=== PATIENT | male | born 1955 | race Caucasian/White ===

== ENCOUNTER 2017-05-26 15:44 | Emergency (ER) | payer OTHER ==
[2017-05-26 16:00] VITALS: BP 162/83
--- NOTE | 2017-05-26 16:55 | UC ---
Respiratory Complaint HPI - HPI Summary HPI Summary: 3 weeks of cough, no fevers, nasal drainage, no body aches - History of Current Complaint Chief Complaint: UCRespiratory Stated Complaint: COLD,COUGH Time Seen by Provider: 05/26/17 16:53 Hx Obtained From: Patient Onset/Duration: Gradual Onset, Lasting Weeks - 3 Timing: Constant Severity Initially: Mild Severity Currently: Mild Pain Intensity: 2 Pain Scale Used: 0-10 Numeric Character: Cough: Nonproductive Aggravating Factors: Nothing Alleviating Factors: Nothing Associated Signs And Symptoms: Positive: URI. Negative: Dyspnea, Fever, Chills - Allergies/Home Medications Allergies/Adverse Reactions: Allergies Allergy/AdvReac Type Severity Reaction Status Date / Time No Known Allergies Allergy Verified 05/26/17 16:01 PMH/Surg Hx/FS Hx/Imm Hx Previously Healthy: No - SPinal muscular degeneration Endocrine History: Dyslipidemia Cardiovascular History: Hypertension GI/ History: Gastroesophageal Reflux - Surgical History Surgical History: None - Family History Known Family History: Positive: None - Social History Occupation: Retired Lives: With Family Alcohol Use: Occasionally Substance Use Type: None Smoking Status (MU): Never Smoked Tobacco Review of Systems Constitutional: Negative Skin: Negative Eyes: Negative ENT: Negative Respiratory: Cough Cardiovascular: Negative Gastrointestinal: Negative Genitourinary: Negative Motor: Negative Neurovascular: Negative Musculoskeletal: Negative Neurological: Negative Psychological: Negative Is Patient Immunocompromised?: No All Other Systems Reviewed And Are Negative: Yes Physical Exam Triage Information Reviewed: Yes Appearance: Well-Appearing, No Pain Distress, Well-Nourished Vital Signs: Initial Vital Signs Temp 97.9 F 05/26/17 15:56 Pulse 72 05/26/17 15:56 Resp 18 05/26/17 15:56 BP 162/83 05/26/17 15:56 Pulse Ox 96 05/26/17 15:56 Vital Signs Reviewed: Yes Eye Exam: Normal Eyes: Positive: Conjunctiva Clear ENT Exam: Normal ENT: Positive: Normal ENT inspection, Hearing grossly normal, Pharynx normal, TMs normal. Negative: Nasal congestion, Nasal drainage, Tonsillar swelling, Tonsillar exudate, Trismus, Muffled/hoarse voice Dental Exam: Normal Neck exam: Normal Neck: Positive: Supple, Nontender, No Lymphadenopathy Respiratory Exam: Normal Respiratory: Positive: Chest non-tender, Lungs clear, Normal breath sounds, No respiratory distress, No accessory muscle use Cardiovascular Exam: Normal Cardiovascular: Positive: RRR, No Murmur, Pulses Normal, Brisk Capillary Refill Musculoskeletal Exam: Normal Musculoskeletal: Positive: Strength Intact, ROM Intact, No Edema Neurological Exam: Normal Neurological: Positive: Alert, Muscle Tone Normal Psychological Exam: Normal Skin Exam: Normal UC Diagnostic Evaluation - Laboratory O2 Sat by Pulse Oximetry: 96 Respiratory Course/Dx - Course Course Of Treatment: Increase fluids, albuterol, zithromax, follow with PCP - Differential Dx/Diagnosis Differential Diagnosis/HQI/PQRI: Bronchitis, Lower Resp Infection Provider Diagnoses: High blood pressure in poor control, Bronchitis Discharge - Discharge Plan Condition: Stable Disposition: HOME Prescriptions: Albuterol HFA INHALER* [Ventolin HFA Inhaler*] 2 puff INH Q4H PRN #1 mdi PRN Reason: cough Azithromycin TAB* [Zithromax TAB (Z-GERMAINE) 250 mg #6 tabs] 2 tab PO .TODAY, THEN 1 DAILY #1 germaine Patient Education Materials: Acute Bronchitis (ED), Hypertension (ED), Bronchospasm (ED) Referrals: Wan Russ MD [Primary Care Provider] - 1 Week
== END 2017-05-26 17:14 | disposition home or self-care (01) ==
LOC: UCEAST 15:44
DX: J40 Bronchitis, not specified as acute or chronic (principal); E78.5 Hyperlipidemia, unspecified; I10 Essential (primary) hypertension; K21.9 Gastro-esophageal reflux disease without esophagitis; R03.0 Elevated blood-pressure reading, without diagnosis of hypertension
CPT/HCPCS: 99212; G0463

== ENCOUNTER 2017-08-25 10:32 | Day surgery (SDC) | payer OTHER ==
--- NOTE | 2017-07-27 07:31 | HP ---
PREOPERATIVE HISTORY AND PHYSICAL: DATE OF SURGERY/ADMISSION: 08/04/17 DATE OF OFFICE VISIT/ENCOUNTER: 07/06/17 ATTENDING SURGEON: Sakshi Armando MD * (DICTATED BY OMID SCOTT) PROCEDURE: Right ring finger trigger finger release and wrist carpal tunnel release. PRIMARY CARE PHYSICIAN: Wan Russ MD CHIEF COMPLAINT: Right ring triggering, numbness and tingling, right hand. HISTORY OF PRESENT ILLNESS: This is a 62-year-old male with adult onset spinal muscular atrophy. He is complaining of triggering in his right ring finger ongoing for almost 2 years. He had a cortisone injection a while back that was helpful; however, the symptoms have returned and he would like to pursue surgical intervention for this problem. He is also more recently complaining of numbness and tingling in his right hand. 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 The patient is interested in a carpal tunnel release for his right wrist. The patient generally ambulates with a walker at home and uses a wheelchair away from home. PAST MEDICAL HISTORY: 1. Adult onset spinal muscular atrophy. 2. Hypertension. 3. Hypercholesterolemia. 4. Hypothyroidism. PAST SURGICAL HISTORY: 1. Hernia repair x2. 2. [place] teeth extraction. CURRENT MEDICATIONS: 1. Amlodipine besylate once daily. 2. Aspirin 81 mg daily. 3. Atenolol 50 mg daily. 4. Atorvastatin calcium 10 mg daily. 5. Cyanocobalamin 1000 mcg/mL 1 mL intramuscularly q.2 to 3 weeks. 6. Ergocalciferol 1 cap once a month. 7. Fluocinonide 0.05% apply as needed. 8. Multivitamin daily. 9. Nexium 40 mg daily. 10. Rhinocort Aqua 32 mcg/ACT 1 spray each nostril daily. 11. Singulair 10 mg daily. 12. Synthroid 125 mcg daily. ALLERGIES: No known drug allergies. FAMILY MEDICAL HISTORY: Heart disease, liver cancer, lung and bladder cancer. SOCIAL HISTORY: The patient is retired from [employer]. He denies tobacco use and recreational drug use. He does drink alcohol on regular occasion, approximately 1 glass of wine daily. REVIEW OF SYSTEMS: General: Negative for fevers, chills, or night sweats. No known anesthesia problems. HEENT: Negative for headache, lightheadedness, or syncopal episodes. Integumentary: Negative for abrasions, lesions, or open wounds. Cardiothoracic: Negative for hypertension, chest pain, palpitations, and edema. Pulmonary: Negative for shortness of breath with exertion, chronic cough, COPD. GI: Negative for nausea, vomiting, diarrhea, constipation, and GERD. : Negative for nocturia, urinary frequency, urgency, history of UTIs, and kidney problems. Musculoskeletal: Positive for current complaint and effects from spinal muscular atrophy. Neurologic: Positive for weakness associated with spinal stenosis, spinal muscular atrophy. Negative for history of seizure, stroke, or epilepsy. Endocrine: Negative for diabetes or thyroid issues. Hematologic: Negative for easy bruising, anemia, excessive bleeding, or history of DVT. Infectious Disease: Negative for history of MRSA, hepatitis C, or HIV. PHYSICAL EXAMINATION GENERAL: Well-developed, well-nourished 62-year-old male in no acute distress. The patient presents in a wheelchair. VITAL SIGNS: Height 5 feet 10 inches, weight 198 pounds, pulse rate 66, blood pressure 136/84. HEENT: Normocephalic, atraumatic. Pupils are equal, round, and reactive to light and accommodation. Extraocular movements are intact. Throat is clear. NECK: Supple. No palpable lymph nodes. PULMONARY: Lungs are clear to auscultation bilaterally. No wheezes, rales, or rhonchi. CARDIOTHORACIC: Regular rate and rhythm. S1, S2. No murmurs, rubs, or gallops. No edema. ABDOMEN: Positive bowel sounds, soft, nontender. NEUROLOGICAL: Alert and oriented x3. Sensation in upper extremities is intact to light touch. MUSCULOSKELETAL: On exam of his right hand, he has tenderness to palpation at the A1 moisés of the ring finger. He has a clicking as he moves the finger into flexion. He has full extension of the fingers and neurovascular function is intact. There is no visible thenar wasting. There is mild weakness with thumb abduction of the right thumb. Mildly positive median nerve compression test. Negative Tinel's. EMG and nerve conduction study suggested possible presence of a more generalized sensory, motor polyneuropathy with superimposed right greater than left median neuropathy at the wrists. IMPRESSION: Right carpal tunnel syndrome and right ring trigger finger. PLAN: The patient is scheduled to undergo a right ring trigger finger release and wrist carpal tunnel release with Dr. Armando on 08/04/17. He will return to the office in 10 to 14 days postop for followup and suture removal. A prescription for Ultracet was e-scribed to the patient's pharmacy for postoperative pain management. OMID SCOTT [id number]/[facility] #: [id number] HONORIO
--- NOTE | 2017-07-31 16:19 | HP ---
PREOPERATIVE HISTORY AND PHYSICAL: DATE OF ADMISSION: 08/25/2017. CHIEF COMPLAINT: Triggering of the right ring finger and numbness and tingling in the right hand. HISTORY OF PRESENT ILLNESS: Noe is a 62-year-old man who has developed triggering of his right ring finger. He has had a couple of injections which were helpful, but now he presents for surgical treatment for permanent relief of his right ring finger triggering. He also has numbness and tingling in his hand and documented carpal tunnel syndrome on nerve conduction study. Additionally, he has spinal muscular atrophy, so there was some question whether the numbness and tingling in his hands was caused by that, but he does have evidence of median nerve compression on nerve conduction study. He presents for right carpal tunnel release and right ring finger trigger release. PAST MEDICAL HISTORY: Also significant for hypothyroidism and also for thoracic aortic ectasia. PAST SURGICAL HISTORY: Hernia repair. MEDICATIONS: 1. Amlodipine besylate once daily. 2. Aspirin 81 mg p.o. daily. 3. Atenolol 50 mg p.o. daily. 4. Atorvastatin calcium 10 mg p.o. daily. 5. Cyanocobalamin 1000 mcg intramuscular every 2 or 3 weeks. 6. Ergocalciferol 1 capsule once a month. 7. Fluocinonide 0.5% apply as needed. 8. Multivitamin 1 p.o. daily. 9. Nexium 40 mg p.o. daily. 10. Rhinocort 30 mcg 1 spray in each nostril daily. 11. Singulair 10 mg p.o. daily. 12. Synthroid 125 mcg p.o. daily. DRUG ALLERGIES: None. SOCIAL HISTORY: He lives with his . Denies tobacco use. Occasionally consumes alcohol. PHYSICAL EXAMINATION GENERAL: He is a healthy-appearing, very pleasant man in minimal distress at rest. The patient ambulates with the aid of a wheelchair or walker. VITAL SIGNS: Height is 70 inches, weight 198 pounds. Pulse 80, blood pressure 148/86. HEENT: Exam is unremarkable. He has good range of motion of his neck with minimal pain. His eye movements are concentric. LUNGS: Clear to auscultation. Good inspiratory effort. No wheezing. CARDIAC: Regular rate and rhythm without murmur. PERIPHERAL VASCULAR: He has palpable pulses and no peripheral edema. EXTREMITIES: He has tenderness at the A1 moisés of the right ring finger and positive Tinel's sign at the median nerve of the wrist. NEUROLOGIC: He has obvious deficits in his lower extremities with inability to walk unaided. IMPRESSION: Right carpal tunnel syndrome and right ring finger trigger finger. PLAN: Right ring finger trigger release and carpal tunnel release. The surgical procedure, risks, and benefits were explained to the patient today and he agrees to proceed. We will see him back in followup for recheck approximately 10 days postop. [id number]/[facility] #: [id number] HONORIO
[~2017-08-25 10:32] MED LIST: Buffered Lidocaine 0.9% SYRIN* 5 ML/SYR SYRINGE INTRADERM ONE; Lidocaine 1% INJ* 10 MG/ML 30 ML SDV ONE
[2017-08-25] MEDS ORDERED: Acetaminophen TAB* 325 MG PO PRN (10:48)
[2017-08-25] MEDS ORDERED: Levalbuterol 0.63MG/3ML NEB* UNIT OF USE INH PRN (10:48)
[2017-08-25] MEDS ORDERED: Naloxone* 0.4 MG/ML 1 ML VIAL IV PRN (10:48)
[2017-08-25] MEDS ORDERED: Ondansetron INJ* 2 MG/ML VIAL IV PRN (10:48)
[2017-08-25] MEDS ORDERED: fentaNYL* 50 MCG/ML 2 ML VIAL (100 MCG VIAL) ONE (11:51)
[2017-08-25] MEDS ORDERED: Midazolam* 1 MG/ML 2 ML VIAL (2 MG) ONE ×2 (11:52)
[2017-08-25] MEDS ORDERED: Famotidine IV* 10 MG/ML 2 ML (20 mg) ONE (12:21)
[2017-08-25] MEDS ORDERED: Propofol* 10 MG/ML 20 ML BTL IV PUSH ONE (12:29)
[2017-08-25] MEDS ORDERED: Lidocaine 2% PF * 5 ML VIAL ONE (12:29)
[2017-08-25] MEDS ORDERED: Ketorolac INJ* 30 MG/ML 1 ML VIAL ONE (12:29)
[2017-08-25 14:21] VITALS: BP 165/87
--- NOTE | 2017-08-26 05:55 | OP ---
DATE OF OPERATION: 08/25/17 [facility] DATE OF : 51 SURGEON: Sakshi Armando MD HOME CARE CONSULTANT: OMID Mendoza ANESTHESIA: Local MAC. PRE-OP DIAGNOSES: Right carpal tunnel syndrome and right ring finger trigger finger. POST-OP DIAGNOSES: Right carpal tunnel syndrome and right ring finger trigger finger. OPERATIVE PROCEDURE: Right ring finger trigger release and right carpal tunnel release. ESTIMATED BLOOD LOSS: Zero. TOURNIQUET TIME: Approximately 10 minutes. INDICATIONS FOR PROCEDURE: Noe is a 62-year-old male with triggering of his right ring finger and numbness and tingling in the median nerve distribution of his right hand with a positive nerve conduction study for carpal tunnel syndrome. He presents for carpal tunnel release and right ring finger trigger release. DESCRIPTION OF PROCEDURE: The patient was brought to the operating room, was given a sedation anesthetic and a local infiltration of 10 cc of 1% plain lidocaine in the palm of his right hand. The skin of his right hand and forearm was prepped and draped in the usual sterile fashion. The hand and forearm were exsanguinated and the tourniquet elevated to 250 mmHg. A longitudinal incision was made in the palm in line with the ring finger. We dissected through the subcutaneous tissue down to the transverse carpal ligament. The ligament was divided sharply with a knife and then more proximally with the scissors. It was very thickened. The underlying nerve showed [id number] compression at the mid portion of the ligament. The wound was irrigated and the skin edges were reapproximated with 4-0 nylon suture. A transverse incision was made over the A1 moisés of the right ring finger. We dissected bluntly through the subcutaneous tissue. The digital neurovascular bundles were retracted by the rn surgical, Gabrielle Tejeda. A longitudinal incision was made dividing the A1 moisés and the underlying tendons were in good condition. The wound was irrigated and the skin edges were reapproximated with 4-0 nylon suture. The wound was dressed with Xeroform , 4x4, Webril, and an Krishna wrap. The patient tolerated the procedure well and was brought to the recovery room in good condition. [id number]/[facility] #: [id number] MTDD
== END 2017-08-25 14:11 | disposition home or self-care (01) ==
LOC: OREAST 10:32
PROVIDERS: ATTEND Orthopaedic Surgery
DX: G56.01 Carpal tunnel syndrome, right upper limb (principal); M65.341 Trigger finger, right ring finger; I10 Essential (primary) hypertension; E78.00 Pure hypercholesterolemia, unspecified; E03.9 Hypothyroidism, unspecified; Z79.82 Long term (current) use of aspirin
CPT/HCPCS: J1885; J2250; J2704; J3010

== ENCOUNTER 2018-01-16 06:35 | Day surgery (SDC) | payer OTHER ==
--- NOTE | 2018-01-02 07:05 | HP ---
PREOPERATIVE HISTORY AND PHYSICAL: DATE OF ADMISSION/SURGERY: 01/19/18 DATE OF OFFICE VISIT/ENCOUNTER: 01/01/18 ATTENDING SURGEON: Sakshi Armando MD * (DICTATED BY OMID SCOTT) PROCEDURE: Left ring finger trigger finger release, left wrist carpal tunnel release. CHIEF COMPLAINT: Left ring finger triggering, left hand numbness and tingling. HISTORY OF PRESENT ILLNESS: This is a 62-year-old male, who has developed triggering of his left ring finger over the past year. It is quite bothersome and he is interested in pursuing surgical intervention for this problem. He is also complaining of numbness and tingling in his left hand and documented carpal tunnel syndrome on a nerve conduction study. He earlier this year underwent a trigger finger release for his right ring finger along with a right carpal tunnel release and has done well with that hand. He is now interested in pursuing surgical intervention for his left ring finger and his left wrist carpal tunnel syndrome. PAST MEDICAL HISTORY: 1. Spinal muscular atrophy. 2. Hypothyroidism. 3. Thoracic aortic ectasia. PAST SURGICAL HISTORY: 1. Hernia repair. 2. Right ring finger trigger finger release. 3. Right carpal tunnel release. MEDICATIONS: 1. Amlodipine besylate 7.5 mg daily. 2. Aspirin 81 mg daily. 3. Atenolol 50 mg daily. 4. Atorvastatin calcium 10 mg daily. 5. Cyanocobalamin 1000 mcg intramuscularly every 2 or 3 weeks. 6. Ergocalciferol 1 capsule 1 per month. 7. Fluocinonide 0.5% apply as needed. 8. Multivitamin 1 p.o. daily. 9. Nexium 40 mg daily. 10. Rhinocort 30 mcg 1 spray to each nostril daily. 11. Singulair 10 mg p.o. daily. 12. Synthroid 125 mcg daily. DRUG ALLERGIES: No known drug allergies. SOCIAL HISTORY: The patient lives with his . He denies tobacco use and recreational drug use. He occasionally consumes alcohol. REVIEW OF SYSTEMS: General: Negative for fevers, chills, or night sweats. No known anesthesia problem. Unexplained weight loss/gain. HEENT: Negative for headache, lightheadedness, or syncopal episodes and visual changes. Integumentary: Negative for abrasions, lesions, or open wounds. Cardiothoracic : Negative for hypertension, chest pain, palpitations, or edema. Respiratory: Negative for shortness of breath with exertion, chronic cough, COPD, wheezing. GI: Negative for nausea, vomiting, diarrhea, constipation, and GERD. : Negative for nocturia, urinary frequency, urgency, history of UTIs, or kidney problems. Musculoskeletal: Positive for current complaint. Neurological: Positive for spinal muscular atrophy. Negative for history of seizure or stroke. Endocrine: Negative for diabetes and thyroid issues. Hematologic: Negative for easy bruising, anemia, bleeding disorders, history of DVT. Infectious Disease: Negative for history of MRSA, hepatitis C, HIV. PHYSICAL EXAMINATION GENERAL: Well-developed, well-nourished 62-year-old male, in no acute distress. VITAL SIGNS: Height 5 feet 10 inches, weight 195 pounds. Pulse rate 57, blood pressure 148/90. HEENT: Normocephalic, atraumatic. Pupils are equal, round, and reactive to light and accommodation. Extraocular movements are intact. Throat is clear. NECK: Supple. No palpable lymph nodes. PULMONARY: Lungs are clear to auscultation bilaterally. No wheezes, rales, or rhonchi. CARDIOVASCULAR: Regular rate and rhythm. S1, S2. No murmurs, rubs, or gallops. No edema. ABDOMEN: Positive bowel sounds, soft, nontender. NEUROLOGIC: Alert and oriented x3. Cranial nerves II through XII are intact. Sensation is intact to light touch. He has obvious deficits in his lower extremities with inability to walk unaided. MUSCULOSKELETAL: On exam of his left hand, he has tenderness to palpation at the A1 moisés of the ring finger and active triggering as he moves through range of motion. He has a positive Tinel's sign at the median nerve. No visible thenar wasting. IMPRESSION: Left carpal tunnel syndrome, left ring finger trigger finger. PLAN: The patient is scheduled to undergo a left ring finger trigger finger release, left wrist carpal tunnel release with Dr. Armando on 01/19/18. He will return to the office 10 days postop for followup and suture removal. The patient has tramadol left over from his surgery with Dr. Armando in August that he will plan on using for postoperative pain management as needed. KIKA GERMAN, OMID [id number]/[facility] #: [id number] [facility] HOSPITALMary
[~2018-01-16 06:35] MED LIST changes: +Dexamethasone IV* 4 MG/ML 1 ML (4 MG) IV SLOW PU ONE; +Dexamethasone IV* 4 MG/ML 1 ML (4 MG) ONE; +Famotidine IV* 10 MG/ML 2 ML (20 mg) IV ONE; +Famotidine IV* 10 MG/ML 2 ML (20 mg) ONE; -Lidocaine 1% INJ* 10 MG/ML 30 ML SDV ONE
[2018-01-16] MEDS ORDERED: Propofol* 10 MG/ML 20 ML BTL IV PUSH ONE (07:05)
[2018-01-16] MEDS ORDERED: fentaNYL* 50 MCG/ML 2 ML VIAL (100 MCG VIAL) ONE (07:05)
[2018-01-16] MEDS ORDERED: Lidocaine 2% PF * 5 ML VIAL ONE (07:05)
[2018-01-16] MEDS ORDERED: Midazolam* 1 MG/ML 2 ML VIAL (2 MG) ONE (07:05)
[2018-01-16] MEDS ORDERED: Lidocaine 1% INJ* 10 MG/ML 30 ML SDV ONE (07:08)
[2018-01-16] MEDS ORDERED: fentaNYL* 50 MCG/ML 2 ML VIAL (100 MCG VIAL) IV PRN (07:23)
[2018-01-16] MEDS ORDERED: oxyCODONE/Acetamin 5/325 MG* TAB PO PRN (07:23)
[2018-01-16] MEDS ORDERED: Naloxone* 0.4 MG/ML 1 ML VIAL IV PRN (07:23)
[2018-01-16] MEDS ORDERED: Ondansetron INJ* 2 MG/ML VIAL IV PRN (07:23)
[2018-01-16] MEDS ORDERED: DiMENhydriNATE IV* 50 MG/ML VIAL IV PUSH PRN (07:23)
[2018-01-16] MEDS ORDERED: Ketorolac INJ* 30 MG/ML 1 ML VIAL IV PRN (07:23)
[2018-01-16] MEDS ORDERED: HYDROcodone/ACETAMIN 5-325 MG* 1 TAB PO PRN (07:23)
[2018-01-16 08:44] VITALS: BP 138/79
--- NOTE | 2018-01-17 07:59 | OP ---
DATE OF OPERATION: 01/16/18 - [facility] DATE OF : 51 SURGEON: Sakshi Armando MD [employer]LECT[employer]PLIANCE MECHANIC: OMID Mendoza ANESTHESIA: Local MAC PRE-OP DIAGNOSES: Left ring finger trigger finger and left carpal tunnel syndrome. POST-OP DIAGNOSES: Left ring finger trigger finger and left carpal tunnel syndrome. OPERATIVE PROCEDURE: Left ring finger trigger release and left carpal tunnel release. ESTIMATED BLOOD LOSS: Zero. TOURNIQUET TIME: Was about 15 minutes. INDICATIONS FOR PROCEDURE: Noe is a 62-year-old man with numbness and tingling in the median nerve distribution of his left hand as well as locking of his left ring finger. He presents for left carpal tunnel release and left ring finger trigger release. DESCRIPTION OF PROCEDURE: The patient was brought to the operating room, was given a sedation anesthetic and injection of total of 10 cc of 1% plain Marcaine in the palm of his left hand. The skin of his left hand and forearm was prepped and draped in usual sterile fashion. The hand and forearm were exsanguinated and the tourniquet elevated to 250 mmHg. A transverse incision was made centered over the A1 moisés of the ring finger, we dissected bluntly through the subcutaneous tissue. The digital neurovascular bundles were retracted by the surgical lead, Gabrielle Tejeda. The A1 moisés was incised longitudinally completely releasing the tendons which were in good condition. The wound was irrigated and the skin edges reapproximated with 4-0 nylon suture. Next, a longitudinal incision was made in the palm in the line with the ring finger, was dissected sharply through the subcutaneous tissues down to the transverse carpal ligament. The ligament was divided sharply with a knife and then more proximally with the scissors. The nerve was dissected free from the surrounding tissue and the area of moderate compression at the mid portion of the ligament. The wound was irrigated and the skin edges reapproximated with 4-0 nylon suture. The wound was dressed with Xeroform, 4 x 4, Webril and an Krishna wrap. The patient tolerated the procedure well, was brought to the recovery room in good condition. [id number]/[facility] #: [id number] [facility]
== END 2018-01-16 09:02 | disposition home or self-care (01) ==
LOC: OREAST 06:35
PROVIDERS: ATTEND Orthopaedic Surgery
DX: M65.342 Trigger finger, left ring finger (principal); I10 Essential (primary) hypertension; E78.5 Hyperlipidemia, unspecified; E03.9 Hypothyroidism, unspecified; I77.810 Thoracic aortic ectasia
CPT/HCPCS: J1100; J2250; J2704; J3010

== ENCOUNTER 2018-11-09 09:25 | Emergency (ER) | payer MEDICARE, OTHER ==
--- OUTSIDE RECORDS SUMMARY | 2018-11-09 09:35 | XMS REPORT | Continuity of Care Document ---
:1955 External Reference #:[id number] Author Name Nelli Delaney Care Team Providers Name Role Phone Wan Russ MD Primary Care Physician Unavailable Payers Date Identification Numbers Payment Provider Subscriber Policy Number: [id number] [employer] Noe Bernal PayID: [id number] [address] [place] [address] Policy Number: [id number] Medicare Noe Bernal PayID: [id number] [address] [place] [address] Expires: 2018 Policy Number: [id number] [employer] Edilberto Kirkland Group Number: [id number] [id number] PayID: [id number] [place] [address] Expires: 2015 Policy Number: [id number] [employer] Noe Bernal Group Number: [id number] [id number] PayID: [id number] [place] [address] Advance Directives Description No Information Available Problems Date Description Provider Status Onset: 10/02/2013 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., Active aorta BHARATI RICHTER Onset: 10/04/2016 Dilatation of aorta Goran Berman M.D., Active BHARATI RICHTER Onset: 10/02/2017 Thoracic aortic ectasia Goran Berman M.D., Active BHARATI RICHTER Onset: 10/02/2017 Dyspnea Goran Castro Berman, M.D., Active FACC, FASNC Family History Date Family Member(s) Observation Comments Father due to CHF () Mother due to Liver Cancer () Siblings 4 2 living, 2 Social History Type Date Description Comments Sex Unknown Marital Status Lives With 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 [employer] Tobacco Use Start: Unknown Never Smoked Cigarettes Smoking Status Reviewed: 10/11/18 Never Smoked Cigarettes ETOH Use Consumes 1 glass of 5-7 days per week wine per day Tobacco Use Start: Unknown Patient has never smoked Recreational Drug Use Denies Drug Use Exercise Type/Frequency Exercises regularly 3 times a week [facility] 2 hours a day 3 times a week Allergies, Adverse Reactions, Alerts Description No Known Drug Allergies Medications Medication Date Status Form Strength Qnty SIG Indications Ordering Provider Mandibular 10/11 Active Device fabricate G47.33 Advancement oral Logan, Device appliance PATRICE, RN, /mandibular STRATEGIC BUYER-BC advancement device for sleep apnea with needed adjustments . g47.33 Walker Platform 07/31 Active use as M65.342 Sakshi Attachment needed Armando, Right Forearm M.DTamir Atenolol Active Tablets 50mg 90tab 1 po qd Unknown /0000 s Aspirin Active Tablets 81mg 1 po qd Unknown /0000 Synthroid Active Tablets 125mcg 30tab 1 po qd Unknown /0000 s Rosuvastatin Active Tablets 10mg 1 by mouth Unknown Calcium 0000 one time per day Singulair Active Tablets 10mg 90tab 1 po qd Unknown /[address] 40mg 30cap 1 po qd Unknown /0000 s Rhinocort Aqua Active Suspension 32mcg/Act 1unit 1 sprays Unknown /0000 s each nares every day Amlodipine Active Tablet 5mg once daily David Russ MD Wan Cyanocobalamin Active Solution 1000mcg/M 1 Unknown /0000 L milliliters intramuscul ar q 2 weeks Fluocinonide Active Gel 0.05% apply as Unknown /0000 needed Ergocalciferol Active Capsule 50,000Uni 1 cap once Unknown /0000 t a month Multivitamins Active Tablet 1 by mouth Unknown /0000 every day Tricor Active Tablets 48mg 1 by mouth Unknown /0000 every day Ranitidine HCL Active Tablets 150mg take one Unknown /0000 tablet by mouth twice a day Ultracet 07/06 Hx Tablets 37.5-325m 15tab 1 tab by g s mouth every Armando, - 4-6 hours M.D. 10/01 as needed pain Vitamin B 12 Hx shot every Unknown /0000 2 weeks - 10/04 Reglan Hx Tablets 10mg 30tab 1 q6h prn Unknown /0000 s nausea - 05/06 Medications Administered in Office Medication Date Status Form Strength Qnty SIG Indications Ordering Provider Depomedrol Administered Injection Sakshi 40MG 019 Jama Armando Depomedrol Administered Injection Sakshi 40MG 019 Jama Armando Depomedrol Administered Injection Sakshi 40MG 018 Jama Armando Depomedrol Administered Injection Sakshi 40MG 018 Jama Armando Depomedrol Administered Injection Sakshi 40MG 017 Jama Armando Depomedrol Administered Injection Sakshi 40MG 017 Jama Armando Depomedrol Administered Injection Gabrielle 40MG 016 Bitting, RPA-C Depomedrol Administered Injection Gabrielle 40MG 016 Bitting, RPA-C Depomedrol Administered Injection Sakshi 40MG 016 Jama Armando Immunizations Description No Information Available Vital Signs Date Vital Result Comment 10/11/2018 1:38pm Height 70 inches 5'10" Weight 198.00 lb Heart Rate 60 /min BP Systolic Sitting 140 mmHg Rue large cuff BP Diastolic Sitting 80 mmHg Rue large cuff Respiratory Rate 12 /min O2 % BldC Oximetry 96 % BMI (Body Mass Index) 28.4 kg/m2 10/04/2018 1:59pm Height 70 inches 5'10" Weight 198.00 lb Heart Rate 62 /min Respiratory Rate 15 /min Body Temperature 97.5 F Pain Level 1 BMI (Body Mass Index) 28.4 kg/m2 08/09/2018 11:08am Height 70 inches 5'10" Heart Rate 60 /min BP Systolic 138 mmHg BP Diastolic 82 mmHg Respiratory Rate 18 /min Pain Level 0 07/19/2018 1:42pm Height 70 inches 5'10" Weight 198.00 lb pt report, unable to weigh Heart Rate 60 /min BP Systolic Sitting 124 mmHg right reg cuff BP Diastolic Sitting 78 mmHg right reg cuff Respiratory Rate 18 /min BMI (Body Mass Index) 28.4 kg/m2 07/18/2018 2:04pm Height 70 inches 5'10" Heart Rate 60 /min BP Systolic Standing 130 mmHg BP Diastolic Standing 82 mmHg Respiratory Rate 16 /min Body Temperature 96.5 F Pain Level 0 06/13/2018 2:13pm Height 70 inches 5'10" Weight 198.00 lb BP Systolic 138 mmHg BP Diastolic 92 mmHg Respiratory Rate 15 /min Body Temperature 96.8 F Pain Level 0 BMI (Body Mass Index) 28.4 kg/m2 06/05/2018 10:21am Height 70 inches 5'10" Weight 198.00 lb Per pt, pt in wheelchair Heart Rate 56 /min BP Systolic Sitting 146 mmHg Rue large cuff BP Diastolic Sitting 90 mmHg Rue large cuff Respiratory Rate 16 /min O2 % BldC Oximetry 98 % BMI (Body Mass Index) 28.4 kg/m2 Neck Circumference in inches 17.75 02/26/2018 11:25am Height 70 inches 5'10" Weight 198.00 lb Heart Rate 68 /min BP Systolic 110 mmHg BP Diastolic 70 mmHg Respiratory Rate 12 /min Body Temperature 98.1 F Pain Level 0 BMI (Body Mass Index) 28.4 kg/m2 01/29/2018 10:11am Height 70 inches 5'10" Weight 198.00 lb Heart Rate 74 /min BP Systolic 130 mmHg BP Diastolic 80 mmHg Respiratory Rate 14 /min Body Temperature 96.7 F Pain Level 0 BMI (Body Mass Index) 28.4 kg/m2 01/01/2018 8:19am Height 70 inches 5'10" Heart Rate 57 /min BP Systolic 148 mmHg BP Diastolic 90 mmHg Respiratory Rate 16 /min Body Temperature 97.6 F Pain Level 2 10/02/2017 12:29pm Height 70 inches 5'10" Weight 195.00 lb at home Heart Rate 56 /min BP Systolic Sitting 148 mmHg Lue reg cuff BP Diastolic Sitting 90 mmHg Lue reg cuff Respiratory Rate 16 /min BMI (Body Mass Index) 28.0 kg/m2 09/28/2017 3:40pm Height 70 inches 5'10" Heart Rate 64 /min BP Systolic 140 mmHg BP Diastolic 88 mmHg Respiratory Rate 16 /min Body Temperature 97.7 F Pain Level 2 09/04/2017 11:32am Height 70 inches 5'10" Weight 198.00 lb Heart Rate 57 /min Respiratory Rate 14 /min Body Temperature 97.9 F Pain Level 2 BMI (Body Mass Index) 28.4 kg/m2 08/25/2017 2:39pm Height 70 inches 5'10" Weight 198.00 lb Heart Rate 52 /min BP Systolic 144 mmHg BP Diastolic 90 mmHg Respiratory Rate 20 /min Body Temperature 97.1 F Pain Level 2 BMI (Body Mass Index) 28.4 kg/m2 07/31/2017 10:27am Height 70 inches 5'10" Weight 198.00 lb Heart Rate 80 /min BP Systolic 148 mmHg BP Diastolic 86 mmHg Respiratory Rate 14 /min Body Temperature 97.5 F Pain Level 1 BMI (Body Mass Index) 28.4 kg/m2 07/06/2017 2:16pm Height 70 inches 5'10" Weight 198.00 lb per pt Heart Rate 66 /min reg BP Systolic Sitting 136 mmHg Rue, reg cuff BP Diastolic Sitting 84 mmHg Rue, reg cuff Respiratory Rate 16 /min Body Temperature 97.3 F tympanic Pain Level 1 right trigger finger BMI (Body Mass Index) 28.4 kg/m2 06/20/2017 2:14pm Height 70 inches 5'10" Weight 198.00 lb Heart Rate 69 /min BP Systolic 142 mmHg BP Diastolic 78 mmHg Respiratory Rate 16 /min BMI (Body Mass Index) 28.4 kg/m2 04/20/2017 10:59am Height 70 inches 5'10" Weight 198.00 lb Heart Rate 68 /min BP Systolic 152 mmHg BP Diastolic 90 mmHg Respiratory Rate 18 /min Body Temperature 96.5 F BMI (Body Mass Index) 28.4 kg/m2 03/15/2017 2:32pm Height 70 inches 5'10" Weight 190.00 lb BP Systolic 118 mmHg BP Diastolic 81 mmHg Body Temperature 97.0 F Pain Level 1 BMI (Body Mass Index) 27.3 kg/m2 10/04/2016 2:24pm Height 70 inches 5'10" Weight 190.00 lb per patient BP Systolic Sitting 146 mmHg Rue reg cuff BP Diastolic Sitting 98 mmHg Rue reg cuff Respiratory Rate 17 /min BMI (Body Mass Index) 27.3 kg/m2 Ejection Fraction 55-60% 09/29/2016 echo 08/03/2016 2:19pm Height 70 inches 5'10" Weight 195.00 lb per pt Pain Level 1 and weakness BMI (Body Mass Index) 28.0 kg/m2 11/18/2015 2:31pm Height 70 inches 5'10" Weight 190.00 lb Heart Rate 72 /min BP Systolic Sitting 136 mmHg BP Diastolic Sitting 82 mmHg Respiratory Rate 18 /min Pain Level 1 BMI (Body Mass Index) 27.3 kg/m2 10/02/2013 1:09pm Height 610 inches 50'10" Weight 285.00 lb without shoes Heart Rate 60 /min BP Systolic Sitting 146 mmHg LA reg cuff BP Diastolic Sitting 90 mmHg LA reg cuff BP Systolic Standing 132 mmHg LA reg cuff BP Diastolic Standing 90 mmHg LA reg cuff Respiratory Rate 16 /min BMI (Body Mass Index) 0.5 kg/m2 Results Description No Information Available Procedures Date Code Description Status 10/04/201846980 Injection Single Tendon Origin/Insertion Completed 10/04/2018 46083 Injection Single Tendon Origin/Insertion Completed 07/02/2018 58890 Polysomnography Sleep Staging 4+ Parameters Completed 06/13/201838124 Inject Tendon Sheath Or Ligament Aponeurosis Eg Plantar Completed Fascia 05/02/2018 35356 Destruction Of Benign Lesions Any Method 1-14 lesions Completed 02/26/2018 32913 Inject Tendon Sheath Or Ligament Aponeurosis Eg Plantar Completed Fascia 01/16/2018 41366 Carpal Tunnel Release Completed 01/16/2018 88131 Carpal Tunnel Release Completed 01/16/2018 27824 Trigger Finger Release Incision / Tendon Sheath Incision Completed 01/16/2018 20944 Trigger Finger Release Incision / Tendon Sheath Incision Completed 10/02/2017 43624 EKG Tracing & Interpretation Completed 09/25/2017 60485 ECHO Transthoracic, Real-Time 2D With Doppler And Color Completed Flow 09/25/2017 82430 ECHO Transthoracic, Real-Time 2D With Doppler And Color Completed Flow 08/25/2017 24763 Trigger Finger Release Incision / Tendon Sheath Incision Completed 08/25/2017 89509 Trigger Finger Release Incision / Tendon Sheath Incision Completed 08/25/2017 39138 Carpal Tunnel Release Completed 08/25/2017 40203 Carpal Tunnel Release Completed 06/20/2017 76461 Nerve Conduction 07-08 Studies Completed 04/20/2017 17928 Anoscopy Completed 03/15/2017 89885 Inject Tendon Sheath Or Ligament Aponeurosis Eg Plantar Completed Fascia 03/15/2017 61042 Inject Tendon Sheath Or Ligament Aponeurosis Eg Plantar Completed Fascia 10/04/2016 81969 EKG Tracing & Interpretation Completed 09/29/2016 68864 ECHO Transthoracic, Real-Time 2D With Doppler And Color Completed Flow 08/03/2016 81154 Inject Tendon Sheath Or Ligament Aponeurosis Eg Plantar Completed Fascia 08/03/2016 92320 Inject Tendon Sheath Or Ligament Aponeurosis Eg Plantar Completed Fascia 11/18/2015 93545 Inject Tendon Sheath Or Ligament Aponeurosis Eg Plantar Completed Fascia 10/02/2013 63415 EKG Tracing & Interpretation Completed 09/20/2013 69799 ECHO Transthoracic, Real-Time 2D With Doppler And Color Completed Flow Encounters Type Date Location Provider Dx Diagnosis Office Visit 08/09/2018 Orthopedic Sakshi Armando, G56.32 Lesion of radial 11:00a Services Of [facility] nerve, left upper limb Office Visit 07/19/2018 Pulmonology And Christina Logan, G47.33 Obstructive sleep 1:15p Sleep [facility] J[facility] IBRAHIM, STRATEGIC BUYER-BC 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) Office Visit 07/18/2018 Orthopedic Sakshi Armando G56.32 Lesion of radial 2:00p [facility] nerve, left upper limb Office Visit 06/13/2018 Orthopedic Sakshi Armando, M65.312 Trigger thumb, 2:00p [facility] left thumb G56.32 Lesion of radial nerve, left upper limb Office Visit 06/05/2018 10:00a Pulmonology And Jolanta G47.9 Sleep disorder, Sleep Services Of MD Taya unspecified [employer]forcing Steel Erector G71.00 Muscular dystrophy, unspecified Office Visit 05/02/2018 2:30p [facility] Dermatology Arnie Sanz, L82.1 Other seborrheic MD keratosis L57.0 Actinic keratosis R20.2 Paresthesia of skin L91.8 Other hypertrophic disorders of the skin L82.0 Inflamed seborrheic keratosis L53.8 Other specified erythematous conditions Z78.9 Other specified health status Office Visit 10/02/2017 1:00p [facility] Goranmaria del carmen Castro I77.810 Thoracic aortic Of [facility] Jama Berman, ectasia BHARATI RICHTER R06.02 Shortness of breath Office Visit 07/06/2017 Orthopedic Sakshi M65.341 Trigger finger, 2:00p Services Of Jama Armando right ring finger C.M.A. Office Visit 04/20/2017 Surgical Micky Costa, K64.1 Second degree 10:45a [facility] hemorrhoids [facility] Office Visit 10/04/2016 [place] carmen Castro I77.819 Aortic ectasia, 2:45p Cardiology Of Jama Berman, unspecified site [facility] BHARATI RICHTER Office Visit 08/03/2016 Orthopedic Gabrielle Tejeda M65.341 Trigger finger, 2:20p Services Of RPA-C right ring finger C.M.A. M65.342 Trigger finger, left ring finger Office Visit 11/18/2015 2:30p Orthopedic Sakshi Armando M65.341 Trigger Services Of Jama finger, right C.M.A. ring finger M65.342 Trigger finger, left ring finger Office Visit 10/02/2013 1:00p [facility] Goran Castro 447.70 Aortic Ectasia, Of [facility] Jama Berman, Unspecified Site JACQUELINBHARATI Plan of Treatment Future Appointment(s):01/08/2019 2:30 pm - Christina Logan DNP, RN, DEMETRIO- at Pul[facility]01/01/2019 1:45 pm - Goran Berman M.D., BHARATI RICHTER at [facility] Of [facility]10/19/2018 3:00 pm - Ica ECHO Schedule at [facility]/22/2018 11:45 am - Goran Berman M.D. , BHARATI RICHTER at [facility]/11/2018 - Christina Logan DNP, RN, DEMETRIO-BCG47.33 Obstructive sleep apnea (adult) (pediatric)New Medication: Mandibular Advancement Device - fabricate oral appliance /mandibular advancement device for sleep apnea with needed adjustments. g47.33New Orders: [facility], Ordered: 10/11/18Comments:Sleep Apnea - 07/02/18 16.7/hour, felicity oxygen 89%On CPAP AHI 3.3 /hour (awake), although pressure<6.5 cmwill change to 5-7 cm.Follow up:3 months or if you return the CPAP and pursue the oral appliance return 1-2 months after using the oral appliance Mandibular advancement device. If you pursue the device call us to send information to the dentist.Recommendations:Continue PAP device, Benefitting and compliant with treatment. Cleaning Wipe off mask daily (baby wipe-no scent, or warm water) Clean mask, tubing, filter, and water chamber weekly in mild no scent dish soap and water. Hang to dry. If you have any sleepiness while driving you MUST avoid operating a vehicle or machinery. If you have difficulty with your equipment, or need to replace your mask or hoses, please contact your homecare agency. A weight change of 20 pounds or more may have an effect onyour equipment ; if you are experiencing problems please call for an appointment. If you have any further questions, please call the [facility] at [phone].G98.880 ClaustrophobiaRecommendations:Put mask on during the day Take your Atenolol 1/2 to 1 hour before putting on the CPAP for the night(beta blockers can help with anxiety- stage fright)
[2018-11-09 09:44] VITALS: BP 154/80
--- NOTE | 2018-11-09 10:29 | UC ---
Lower Extremity/Ankle HPI - HPI Summary HPI Summary: left ankle pain x 1 days s/p fall on his left ankle as he was getting to his car pain and swelling of the left ankle pt. has a hx of spinal muscle atrophy , uses a walker for walking or on wheelchair - History of Current Complaint Chief Complaint: UCLowerExtremity Stated Complaint: LT ANKLE INJURY Time Seen by Provider: 11/09/18 09:38 Hx Obtained From: Patient, Family/Demand Planning Analyst Onset/Duration: Sudden Onset, Lasting Days - 1, Still Present Severity Initially: Moderate Severity Currently: Moderate Pain Intensity: 6 Aggravating Factor(s): Standing, Ambulation Alleviating Factor(s): Rest, Elevation, Ice Able to Bear Weight: No - Allergies/Home Medications Allergies/Adverse Reactions: Allergies Allergy/AdvReac Type Severity Reaction Status Date / Time environmental Allergy Congestion Uncoded 11/09/18 09:44 Home Medications: Home Medications Ibuprofen 400 mg PO ONCE PRN 11/09/18 [History Confirmed 11/09/18] PMH/Surg Hx/FS Hx/Imm Hx - Additional Past Medical History Additional PMH: spinal muscular atrophy Cardiovascular History: Hypertension - Surgical History Surgical History: Yes Surgery Procedure, Year, and Place: INGUINAL HERNIA REPAIR 1976. WISDOM TEETH REMOVED 1980. INGUINAL RIGHT HERNIA REPAIR 2006. BILAT CARPAL SALOME- RIGHT , LEFT 12/2017. bilateral trigger finger release - Family History Known Family History: Positive: None Negative: Diabetes - Social History Alcohol Use: Daily Alcohol Amount: WINE A DAY Substance Use Type: None Smoking Status (MU): Never Smoked Tobacco Review of Systems All Other Systems Reviewed And Are Negative: Yes Constitutional: Positive: Negative Skin: Positive: Negative Eyes: Positive: Negative ENT: Positive: Negative Respiratory: Positive: Negative Is Patient Immunocompromised?: No Physical Exam Triage Information Reviewed: Yes Appearance: Well-Appearing, No Pain Distress, Well-Nourished Vital Signs: Initial Vital Signs Temp 98.8 F 11/09/18 09:39 Pulse 60 11/09/18 09:39 Resp 18 11/09/18 09:39 BP 154/80 11/09/18 09:39 Pulse Ox 95 11/09/18 09:39 Vital Signs Reviewed: Yes Eye Exam: Normal Eyes: Positive: Conjunctiva Clear ENT: Positive: Normal ENT inspection, Hearing grossly normal, Pharynx normal Neck: Positive: Supple, Nontender, No Lymphadenopathy Respiratory: Positive: Chest non-tender, Lungs clear, Normal breath sounds Cardiovascular: Positive: RRR, No Murmur, Pulses Normal Musculoskeletal: Positive: Other: - left ankle : + swelling lateral ankle , mild tenderness lateral ankle limited ROM due to injury but mostly due to spinal muscular atrophy Skin Exam: Normal Diagnostics - Radiology No standard instances Radiology Interpretation Completed By: Radiologist Summary of Radiographic Findings: xray left ankle : IMPRESSION: #. Nondisplaced Rodriguez type B fracture pattern lateral malleolus with potential additional. fracture involving the posterior malleolus of the tibial plafond. Associated joint. effusion and anterolateral soft tissue swelling. Lower Extremity Course/Dx - Differential Dx/Diagnosis Provider Diagnosis: Fracture of distal fibula Discharge - Sign-Out/Discharge Documenting (check all that apply): Patient Departure All imaging exams completed and their final reports reviewed: Yes - Discharge Plan Condition: Stable Disposition: HOME Patient Education Materials: Ankle Fracture (ED) Referrals: Wan Russ MD [Primary Care Provider] - Cece Wong MD [Medical Doctor] - - Billing Disposition and Condition Condition: STABLE Disposition: Home
== END 2018-11-09 11:00 | disposition home or self-care (01) ==
LOC: UCEAST 09:25
DX: S82.65XA Nondisplaced fracture of lateral malleolus of left fibula, initial encounter for closed fracture (principal); Z91.09 Other allergy status, other than to drugs and biological substances; W19.XXXA Unspecified fall, initial encounter; Y92.9 Unspecified place or not applicable
CPT/HCPCS: 99211; G0463

== ENCOUNTER 2019-09-03 06:28 | Day surgery (SDC) | payer MEDICARE ==
--- NOTE | 2019-08-26 17:26 | HP ---
PREOPERATIVE HISTORY AND PHYSICAL: DATE OF SURGERY/ADMISSION: 09/03/19 - [facility] DATE OF OFFICE VISIT/ENCOUNTER: 08/07/19 ATTENDING SURGEON: Sakshi Armando MD * (DICTATED BY OMID SCOTT) PROCEDURE: Trigger finger releases, right thumb, index finger, and middle fingers. HISTORY OF PRESENT ILLNESS: This is a 64-year-old male who has had ongoing problems with triggering in his right thumb and his right index finger and right middle finger for over a year. The triggering is quite bothersome and he would like to proceed with surgical intervention for the thumb fingers. He has had trigger releases on both hands in the past and has done quite well with that surgery. PAST MEDICAL HISTORY: 1. Spinal muscular atrophy. 2. Hypothyroidism. 3. Thoracic aortic ectasia. PAST SURGICAL HISTORY: 1. Left ring trigger finger release. 2. Left wrist carpal tunnel release. 3. Right ring trigger finger release. 4. Hernia repair. 5. Right carpal tunnel release. MEDICATIONS: 1. Amlodipine besylate 5 mg daily. 2. Aspirin 81 mg daily. 3. Atenolol 50 mg daily. 4. Cyanocobalamin 1000 mcg/mL, 1 mL intramuscular q.2 weeks. 5. Ergocalciferol 50,000 units 1 cap a month. 6. Fluocinonide 0.05% apply as needed. 7. Gabapentin 300 mg twice daily. 8. Meloxicam 15 mg daily. 9. Multivitamins daily. 10. Nexium 40 mg 1 tab every other day, alternate with ranitidine. 11. Ranitidine HCL 150 mg, take 1 tablet twice every other day. 12. Rhinocort Aqua 1 spray every day p.r.n. 13. Rosuvastatin calcium 10 mg daily. 14. Singulair 10 mg daily. 15. Synthroid 125 mcg daily. 16. Tramadol HCL 50 mg q.8 hours p.r.n. pain. 17. TriCor 48 mg daily. ALLERGIES: No known drug allergies. SOCIAL HISTORY: The patient lives with his . He denies tobacco use and recreational drug use. He occasionally consumes alcohol. REVIEW OF SYSTEMS: Negative for general, cephalic, cardiovascular, respiratory , GI/, other musculoskeletal, integumentary, endocrine, hematologic symptoms. Neurologic: It is positive for symptoms of spinal muscular atrophy, otherwise negative. Infectious Disease: Negative for history of MRSA, hepatitis C, or HIV. PHYSICAL EXAMINATION GENERAL: Well-developed, well-nourished 64-year-old male in no acute distress, presents in a wheelchair. VITAL SIGNS: Height is 5 feet 10 inches, weight 200 pounds. Pulse rate 61, blood pressure 126/80. HEENT: Normocephalic, atraumatic. Pupils are round and reactive to light and accommodation. Extraocular movements are intact. NECK: Supple. No palpable lymph nodes. Throat is clear. PULMONARY: Lungs are clear to auscultation bilaterally. No wheezes, rales, or rhonchi. CARDIOVASCULAR: Regular rate and rhythm. S1 and S2. No murmurs, rubs, or gallops. No edema. ABDOMEN: Positive bowel sounds, soft, nontender. NEUROLOGICAL: Alert and oriented x3. Cranial nerves II through XII are intact. Sensation is intact to light touch. Neurologic deficits present in lower extremities and inability to walk unaided. MUSCULOSKELETAL: On exam of his right hand, he has tenderness to palpation at the A1 pulleys of both the right thumb and index finger. He has active triggering with index finger as he moves through range of motion, stiffness in the thumb. IMPRESSION: Right thumb and index finger and middle finger trigger fingers. PLAN/RECOMMENDATIONS: The patient is scheduled to undergo trigger finger release of his right thumb and index finger and middle finger with Dr. Armando on 09/03/19. He will follow up 10 days postop in the office. Tramadol will prescribed for postoperative pain management. OMID SCOTT [id number]/[facility] #: [id number] [facility]PITALMary
[~2019-09-03 06:28] MED LIST changes: -Buffered Lidocaine 0.9% SYRIN* 5 ML/SYR SYRINGE INTRADERM ONE; +Buffered Lidocaine 1% SYRIN* 1 ML/SYRINGE INTRADERM ONE; -Dexamethasone IV* 4 MG/ML 1 ML (4 MG) IV SLOW PU ONE; -Dexamethasone IV* 4 MG/ML 1 ML (4 MG) ONE; -Famotidine IV* 10 MG/ML 2 ML (20 mg) IV ONE; -Famotidine IV* 10 MG/ML 2 ML (20 mg) ONE; +Lactated Ringers 1000 ML Bag* 1,000 ML IV SCH
[2019-09-03] MEDS ORDERED: Lidocaine 1% INJ* 10 MG/ML 30 ML SDV ONE (07:13)
[2019-09-03] MEDS ORDERED: Propofol* 10 MG/ML 20 ML BTL ONE ×2 (07:27→07:37)
[2019-09-03] MEDS ORDERED: fentaNYL* 50 MCG/ML 2 ML VIAL (100 MCG VIAL) ONE (07:27)
[2019-09-03] MEDS ORDERED: Ketorolac INJ* 30 MG/ML 1 ML VIAL ONE (07:27)
[2019-09-03] MEDS ORDERED: Midazolam* 1 MG/ML 2 ML VIAL (2 MG) ONE (07:27)
[2019-09-03] MEDS ORDERED: DiMENhydriNATE IV* 50 MG/ML VIAL IV PUSH PRN (07:48)
[2019-09-03] MEDS ORDERED: Acetaminophen TAB* 325 MG PO PRN (07:48)
[2019-09-03] MEDS ORDERED: Ondansetron INJ* 2 MG/ML VIAL IV PRN (07:48)
[2019-09-03] MEDS ORDERED: Naloxone* 0.4 MG/ML 1 ML VIAL IV PRN (07:48)
[2019-09-03 08:44] VITALS: BP 138/72
--- NOTE | 2019-09-03 10:40 | OP ---
DATE OF OPERATION: 09/03/19 [facility] DATE OF : 51 SURGEON: Sakshi Armando MD DIRECTOR OF LITIGATION: OMID Mendoza ANESTHESIA: Local MAC. PRE-OP DIAGNOSIS: Trigger fingers, right thumb, index, and long finger. POST-OP DIAGNOSIS: Trigger fingers, right thumb, index, and long finger. OPERATIVE PROCEDURE: Right thumb, index, and long finger trigger release. ESTIMATED BLOOD LOSS: Zero. TOURNIQUET TIME: About 15 minutes. INDICATION FOR PROCEDURE: Noe is a 64-year-old male who has triggering and locking of his right thumb, index, and middle fingers. He presents for release after having failed conservative treatment. DESCRIPTION OF PROCEDURE: The patient was brought to the operating room and was given a sedation anesthetic and a local infiltration of 10 cc of 1% plain lidocaine in the palm of his right hand. The skin of his right upper extremity was prepped and draped in the usual sterile fashion. The hand and forearm were exsanguinated and the tourniquet elevated to 250 mg mmHg. A transverse incision was made centered over the A1 moisés of the index and long fingers. We dissected bluntly through the subcutaneous tissue down to the 2 pulleys. The A1 pulleys were incised longitudinally in both the index and long finger and the tendons were completely released. The tendons were in good condition. The wound was irrigated and the skin edges reapproximated with 4-0 nylon suture. A transverse incision was made over the A1 moisés of the right thumb as well. We dissected bluntly through the subcutaneous tissue. The digital neurovascular bundles were retracted and held by the surgical brace maker, Gabrielle Tejeda. The A1 moisés was incised longitudinally and completely releasing the flexor tendon, which had a mild amount of abrasion. The wound was irrigated and the skin edges reapproximated with 4-0 nylon suture. The wounds were dressed with Xeroform, 4x4, Webril, and an Krishna wrap. The patient tolerated the procedure well and was brought to the recovery room in good condition. [id number]/[facility] #: [id number] MTDMary
== END 2019-09-03 08:58 | disposition home or self-care (01) ==
LOC: OREAST 06:28
PROVIDERS: ATTEND Orthopaedic Surgery
DX: M65.311 Trigger thumb, right thumb (principal); M65.321 Trigger finger, right index finger; M65.331 Trigger finger, right middle finger; I10 Essential (primary) hypertension; E03.9 Hypothyroidism, unspecified; K21.9 Gastro-esophageal reflux disease without esophagitis; R60.0 Localized edema; I77.810 Thoracic aortic ectasia
CPT/HCPCS: J1885; J2250; J2704; J3010

== ENCOUNTER 2023-04-14 06:27 | Inpatient (IN) ==
[~2023-04-14 06:27] MED LIST changes: +Buffered Lidocaine 1% SYRIN 1 ml INTRADERM ONE; -Buffered Lidocaine 1% SYRIN* 1 ML/SYRINGE INTRADERM ONE; -Lactated Ringers 1000 ML Bag* 1,000 ML IV SCH; +Lactated Ringers 1000 ml BAG 1,000 ML IV SCH; +Metoclopramide 5 MG/ML VIAL (10 mg) IV PRN; +NS 0.45% 1000 ml BAG 1,000 ML IV SCH; +Naloxone 0.4 mg VIAL 0.4 mg/ml 1 ml VIAL IV PRN; +Ondansetron 4 mg VIAL 2 MG/ML 2 ml VIAL IV PRN; +Ondansetron ODT 4 mg TAB 4 MG TAB PO PRN
[2023-04-14] MEDS ORDERED: Ondansetron 4 mg VIAL 2 MG/ML 2 ml VIAL ONE (07:05)
[2023-04-14] MEDS ORDERED: Midazolam 2 mg/2 ml VIAL 1 mg/ml 2 ml VIAL (2 mg) ONE ×2 (07:05→07:52)
[2023-04-14] MEDS ORDERED: Dexamethasone IV 4 MG/ML VIAL 1 ml VIAL ONE ×2 (07:05→07:52)
[2023-04-14] MEDS ORDERED: fentaNYL 100 mcg/2 ml 50 MCG/ML VIAL ONE ×2 (07:05→07:51)
[2023-04-14] MEDS ORDERED: Lidocaine 2% PF 5 ML VIAL ONE ×2 (07:06→07:52)
[2023-04-14] MEDS ORDERED: ceFAZolin 2 GM in NS PREMIX 2 GM/100 ML BAG IVPB ONE (07:29)
[2023-04-14] MEDS ORDERED: ROPIVACAINE 5 MG/ML 30 ML BTL (0.5%) ONE (07:52)
[2023-04-14 08:02] LABS: Rapid COVID-19 Molecular Undetected (Undetected)
[2023-04-14] MEDS ORDERED: Glycopyrrolate IV 0.2 MG/ML 1 ML VIAL ONE (08:11)
[2023-04-14] MEDS ORDERED: Bupivacaine 0.5% SDV PF 30ML VIAL ONE (08:28)
[2023-04-14] MEDS ORDERED: Sterile Water for Inj 10 ML ONE (09:27)
[2023-04-14] MEDS ORDERED: Propofol 10 MG/ML 20 ML BTL ONE (09:40)
[2023-04-14] MEDS ORDERED: Phenylephrine 40 mcg/mL 10mL (400mcg) SYRINGE ONE (10:20)
[2023-04-14] MEDS ORDERED: Magnesium Hydroxide LIQ 30 ML UDC PO PRN (11:01)
[2023-04-14] MEDS ORDERED: Lactulose 30 ml UDC PO PRN (11:01)
[2023-04-14] MEDS ORDERED: Ondansetron 4 mg VIAL 2 MG/ML 2 ml VIAL IV PRN (11:01)
[2023-04-14] MEDS ORDERED: Ondansetron ODT 4 mg TAB 4 MG TAB PO PRN (11:01)
[2023-04-14] MEDS ORDERED: Lactated Ringers 1000 ml BAG 1,000 ML IV SCH (12:00)
[2023-04-14] MEDS ORDERED: Fluticasone NASAL SPRAY 50MCG 16 gm SPRAY BTL BOTH NARES PRN (13:19)
[2023-04-14] MEDS: ceFAZolin 1 GM ADVAN 1 GM in NS 0.9% 50 ML 50 ML IVPB SCH (17:15)
[2023-04-14] MEDS: Magnesium Hydroxide LIQ 30 ML UDC PO SCH (21:29)
[2023-04-14] MEDS: Multivitamins/Minerals TAB PO SCH (21:33)
[2023-04-14] MEDS: Aspirin EC 81 mg TAB.EC (enteric coated) PO SCH (21:34)
[2023-04-15] MEDS: ceFAZolin 1 GM ADVAN 1 GM in NS 0.9% 50 ML 50 ML IVPB SCH ×2 (00:27→08:58)
[2023-04-15 08:08] LABS: Hematocrit 38.8 % (38-53); Hemoglobin 13.6 g/dL (13.2-16.3); Mean Corpuscular Hemoglobin 30.6 pg (27-33); Mean Corpuscular Hgb Conc 35.1 g/dL (31-36); Mean Corpuscular Volume 87.2 fL (80-97); Mean Platelet Volume 7.9 fL (7.5-11.2); Platelet Count 320 10^3/uL (150-450); Red Blood Count 4.45 10^6/uL (4.06-5.63); White Blood Count 12.2 10^3/uL (3.6-10.2)
[2023-04-15 08:29] LABS: Calcium 9.3 mg/dL (8.6-10.3); Potassium 3.9 mmol/L (3.5-5.0); eGFR CKD-EPI 81.5 (>60)
[2023-04-15] MEDS: Magnesium Hydroxide LIQ 30 ML UDC PO SCH ×2 (08:56→21:41)
[2023-04-15] MEDS: Multivitamins/Minerals TAB PO SCH ×2 (08:56→21:40)
[2023-04-15] MEDS: Vitamin THERAPEUTIC TAB PO SCH (08:56)
[2023-04-15] MEDS: Aspirin EC 81 mg TAB.EC (enteric coated) PO SCH (21:40)
[2023-04-16] MEDS: Multivitamins/Minerals TAB PO SCH ×2 (09:12→22:01)
[2023-04-16] MEDS: Vitamin THERAPEUTIC TAB PO SCH (09:12)
[2023-04-16] MEDS: Magnesium Hydroxide LIQ 30 ML UDC PO SCH ×2 (09:12→22:00)
[2023-04-16] MEDS ORDERED: Senna TAB 8.6 mg TAB PO ONE (09:19)
[2023-04-16] MEDS: Aspirin EC 81 mg TAB.EC (enteric coated) PO SCH (22:02)
[2023-04-17 07:19] LABS: Hematocrit 39.1 % (38-53); Hemoglobin 13.8 g/dL (13.2-16.3)
[2023-04-17] MEDS: Multivitamins/Minerals TAB PO SCH ×2 (07:36→21:36)
[2023-04-17] MEDS: Magnesium Hydroxide LIQ 30 ML UDC PO SCH ×2 (07:38→21:38)
[2023-04-17 07:39] LABS: Calcium 8.9 mg/dL (8.6-10.3); Creatinine, Serum 1.03 mg/dL (0.67-1.17); Potassium 3.8 mmol/L (3.5-5.0); eGFR CKD-EPI 78.6 (>60)
[2023-04-17] MEDS: Vitamin THERAPEUTIC TAB PO SCH (07:42)
[2023-04-17] MEDS ORDERED: Potassium Chlor 20 meq TAB.ER PO ONE (09:06)
[2023-04-17] MEDS: Aspirin EC 81 mg TAB.EC (enteric coated) PO SCH (21:36)
[2023-04-18] MEDS: Magnesium Hydroxide LIQ 30 ML UDC PO SCH ×2 (08:28→21:21)
[2023-04-18] MEDS: Vitamin THERAPEUTIC TAB PO SCH (08:28)
[2023-04-18] MEDS: Multivitamins/Minerals TAB PO SCH ×2 (08:28→21:20)
[2023-04-18] MEDS: Aspirin EC 81 mg TAB.EC (enteric coated) PO SCH (21:20)
[2023-04-19 05:20] VITALS: BP 168/94
[2023-04-19] MEDS: Multivitamins/Minerals TAB PO SCH (08:02)
[2023-04-19] MEDS: Vitamin THERAPEUTIC TAB PO SCH (08:02)
[2023-04-19] MEDS: Magnesium Hydroxide LIQ 30 ML UDC PO SCH (08:03)
== END 2023-04-19 09:00 | DRG 501 ==
LOC: SSU 06:27 → OR 06:27
PROVIDERS: ADMIT Orthopaedic Surgery; ATTEND Orthopaedic Surgery

== ENCOUNTER 2023-04-18 14:46 | Inpatient (IN) ==
[2023-04-19] MEDS ORDERED: Magnesium Hydroxide LIQ 30 ML UDC PO PRN (12:47)
[2023-04-19] MEDS ORDERED: Senna TAB 8.6 mg TAB PO PRN (12:47)
[2023-04-19] MEDS: Aspirin EC 81 mg TAB.EC (enteric coated) PO SCH (21:22)
[2023-04-19] MEDS: Multivitamins/Minerals TAB PO SCH (21:22)
[2023-04-20] MEDS: Multivitamins/Minerals TAB PO SCH ×2 (09:28→21:05)
[2023-04-20] MEDS: Aspirin EC 81 mg TAB.EC (enteric coated) PO SCH (21:07)
[2023-04-21 07:59] LABS: ABS Eosinophils 0.2 10^3/uL (0.0-0.5); ABS Monocytes 0.9 10^3/uL (0.0-1.1); ABS Neutrophils 4.4 10^3/uL (1.5-7.6); ABS Nucleated RBC 0.01 10^3/ul; Hematocrit 39.9 % (38-53); Hemoglobin 13.8 g/dL (13.2-16.3); Lymphocyte % 15.1 %; Mean Corpuscular Hemoglobin 30.3 pg (27-33); Mean Corpuscular Hgb Conc 34.6 g/dL (31-36); Mean Corpuscular Volume 87.5 fL (80-97); Mean Platelet Volume 7.5 fL (7.5-11.2); Platelet Count 289 10^3/uL (150-450); Red Blood Count 4.56 10^6/uL (4.06-5.63); Red Cell Distribution Width 14.8 % (12-17); White Blood Count 6.4 10^3/uL (3.6-10.2)
[2023-04-21 08:00] LABS: Eosinophil % 2.6 %; Nucleated Red Blood Cells % 0.2 /100 WBC (0.0-0.4)
[2023-04-21 08:14] LABS: Albumin/Globulin Ratio 1.5 (1-3); Calcium 9.1 mg/dL (8.6-10.3); Creatinine, Serum 0.99 mg/dL (0.67-1.17); Globulin 2.7 g/dL (2-4); Potassium 3.7 mmol/L (3.5-5.0); Total Bilirubin 0.7 mg/dL (0.2-1.0); Total Protein 6.7 g/dL (6.4-8.9); eGFR CKD-EPI 82.5 (>60)
[2023-04-21] MEDS: Heparin 5000 UNITS/ML 1 mL VIAL SUBCUT SCH ×2 (09:44→20:42)
[2023-04-21] MEDS: Multivitamins/Minerals TAB PO SCH ×2 (09:49→20:42)
[2023-04-21] MEDS: Aspirin EC 81 mg TAB.EC (enteric coated) PO SCH (20:42)
[2023-04-22] MEDS: Multivitamins/Minerals TAB PO SCH ×2 (07:43→21:42)
[2023-04-22] MEDS: Heparin 5000 UNITS/ML 1 mL VIAL SUBCUT SCH ×2 (07:47→21:43)
[2023-04-22] MEDS: Hemorrhoidal OINT 1 TUBE PR SCH ×3 (13:48→21:40)
[2023-04-22] MEDS: Aspirin EC 81 mg TAB.EC (enteric coated) PO SCH (21:41)
[2023-04-23] MEDS: Multivitamins/Minerals TAB PO SCH ×2 (08:07→20:45)
[2023-04-23] MEDS: Heparin 5000 UNITS/ML 1 mL VIAL SUBCUT SCH ×2 (08:09→20:44)
[2023-04-23] MEDS: Hemorrhoidal OINT 1 TUBE PR SCH ×4 (09:28→20:55)
[2023-04-23] MEDS: Aspirin EC 81 mg TAB.EC (enteric coated) PO SCH (20:45)
[2023-04-24] MEDS: Heparin 5000 UNITS/ML 1 mL VIAL SUBCUT SCH ×2 (08:40→21:15)
[2023-04-24] MEDS: Multivitamins/Minerals TAB PO SCH ×2 (08:41→21:14)
[2023-04-24] MEDS: Hemorrhoidal OINT 1 TUBE PR SCH ×4 (08:45→21:15)
[2023-04-24] MEDS: Aspirin EC 81 mg TAB.EC (enteric coated) PO SCH (21:14)
[2023-04-25] MEDS: Multivitamins/Minerals TAB PO SCH ×2 (08:04→20:47)
[2023-04-25] MEDS: Heparin 5000 UNITS/ML 1 mL VIAL SUBCUT SCH ×2 (08:12→20:48)
[2023-04-25] MEDS: Hemorrhoidal OINT 1 TUBE PR SCH ×3 (09:36→20:48)
[2023-04-25] MEDS: Aspirin EC 81 mg TAB.EC (enteric coated) PO SCH (20:47)
[2023-04-26] MEDS: Multivitamins/Minerals TAB PO SCH ×2 (09:22→21:40)
[2023-04-26] MEDS: Hemorrhoidal OINT 1 TUBE PR SCH ×4 (09:25→21:41)
[2023-04-26] MEDS: Heparin 5000 UNITS/ML 1 mL VIAL SUBCUT SCH ×2 (09:25→21:41)
[2023-04-26] MEDS: Aspirin EC 81 mg TAB.EC (enteric coated) PO SCH (21:40)
[2023-04-27] MEDS: Heparin 5000 UNITS/ML 1 mL VIAL SUBCUT SCH ×2 (12:15→21:02)
[2023-04-27] MEDS: Multivitamins/Minerals TAB PO SCH ×2 (12:15→21:02)
[2023-04-27] MEDS: Hemorrhoidal OINT 1 TUBE PR SCH ×3 (17:30→21:03)
[2023-04-27] MEDS: Aspirin EC 81 mg TAB.EC (enteric coated) PO SCH (21:02)
[2023-04-28] MEDS: Multivitamins/Minerals TAB PO SCH ×2 (07:18→21:01)
[2023-04-28] MEDS: Heparin 5000 UNITS/ML 1 mL VIAL SUBCUT SCH ×2 (07:18→21:06)
[2023-04-28] MEDS: Hemorrhoidal OINT 1 TUBE PR SCH ×3 (07:20→21:03)
[2023-04-28 07:23] LABS: ABS Eosinophils 0.2 10^3/uL (0.0-0.5); ABS Lymphocytes 1.1 10^3/uL (1.0-4.8); ABS Monocytes 0.7 10^3/uL (0.0-1.1); ABS Neutrophils 4.3 10^3/uL (1.5-7.6); Eosinophil % 2.5 %; Hematocrit 39.1 % (38-53); Hemoglobin 13.7 g/dL (13.2-16.3); Lymphocyte % 17.2 %; Mean Corpuscular Hemoglobin 30.7 pg (27-33); Mean Corpuscular Hgb Conc 34.9 g/dL (31-36); Mean Corpuscular Volume 87.9 fL (80-97); Mean Platelet Volume 7.3 fL (7.5-11.2); Platelet Count 308 10^3/uL (150-450); Red Blood Count 4.45 10^6/uL (4.06-5.63); Red Cell Distribution Width 14.7 % (12-17); White Blood Count 6.3 10^3/uL (3.6-10.2)
[2023-04-28 07:36] LABS: Albumin/Globulin Ratio 1.3 (1-3); Calcium 9.1 mg/dL (8.6-10.3); Creatinine, Serum 1.01 mg/dL (0.67-1.17); Potassium 4.1 mmol/L (3.5-5.0); Total Bilirubin 0.5 mg/dL (0.2-1.0)
[2023-04-28] MEDS: Aspirin EC 81 mg TAB.EC (enteric coated) PO SCH (21:01)
[2023-04-29] MEDS: Multivitamins/Minerals TAB PO SCH ×2 (08:41→21:16)
[2023-04-29] MEDS: Heparin 5000 UNITS/ML 1 mL VIAL SUBCUT SCH ×2 (08:43→21:19)
[2023-04-29] MEDS: Hemorrhoidal OINT 1 TUBE PR SCH ×4 (09:09→21:17)
[2023-04-29] MEDS: Aspirin EC 81 mg TAB.EC (enteric coated) PO SCH (21:18)
[2023-04-30] MEDS: Hemorrhoidal OINT 1 TUBE PR SCH ×3 (10:08→21:19)
[2023-04-30] MEDS: Heparin 5000 UNITS/ML 1 mL VIAL SUBCUT SCH ×2 (10:08→21:18)
[2023-04-30] MEDS: Multivitamins/Minerals TAB PO SCH ×2 (10:09→21:19)
[2023-04-30] MEDS: Aspirin EC 81 mg TAB.EC (enteric coated) PO SCH (21:17)
[2023-05-01] MEDS: Multivitamins/Minerals TAB PO SCH ×2 (07:22→21:44)
[2023-05-01] MEDS: Heparin 5000 UNITS/ML 1 mL VIAL SUBCUT SCH ×2 (07:23→21:44)
[2023-05-01] MEDS: Hemorrhoidal OINT 1 TUBE PR SCH ×3 (07:30→21:43)
[2023-05-01] MEDS ORDERED: guaiFENesin 100 mg/5 ml LIQ unit dose cup PO PRN (15:41)
[2023-05-01] MEDS ORDERED: Cyanocobalamin INJ 1,000 MCG/ML VIAL 1 ML VIAL IM SCH (17:00)
[2023-05-01] MEDS: Aspirin EC 81 mg TAB.EC (enteric coated) PO SCH (21:43)
[2023-05-02 06:06] VITALS: BP 136/78
[2023-05-02] MEDS: Multivitamins/Minerals TAB PO SCH (07:38)
[2023-05-02] MEDS: Hemorrhoidal OINT 1 TUBE PR SCH (07:49)
[2023-05-02] MEDS: Heparin 5000 UNITS/ML 1 mL VIAL SUBCUT SCH (07:51)
== END 2023-05-02 13:50 | disposition home or self-care (01) | DRG 945 ==
LOC: PMRU 04-19 09:21
PROVIDERS: ADMIT Physical Medicine & Rehabilitation; ATTEND Physical Medicine & Rehabilitation